=== PATIENT | male | born 1975 | race American Indian/Alaskan Native ===

== ENCOUNTER 2017-05-23 19:00 | Emergency (ER) | payer SELFPAY ==
[2017-05-23 19:16] VITALS: TEMP 98.7
[2017-05-23 21:19] VITALS: BP 156/86; PULSE 72; RESP 18; O2SAT 99
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
--- NOTE | 2017-05-24 07:41 | RAD ---
Right shoulder three views History: Injury. Comparison: None available. Findings: Glenohumeral and acromioclavicular joint spaces appear preserved. No evidence of acute displaced fracture or dislocation of the right shoulder. Incidentally noted is a punctate ossific density seen adjacent to the right lateral aspect of the right transverse process of the T1 vertebral body, nonspecific. Small avulsion injury cannot entirely be excluded. Clinical correlation. Impression: No evidence of acute displaced fracture or dislocation of the right shoulder. Incidentally noted is a punctate ossific density seen adjacent to the right lateral aspect of the right transverse process of the T1 vertebral body, nonspecific. Small avulsion injury cannot entirely be excluded. Clinical correlation. If pain persists, consider MRI.
--- NOTE | 2017-05-24 07:43 | RAD ---
Right humerus two views History: Injury. Comparison: None available. Findings: No evidence of acute displaced fracture or dislocation. Impression: Negative acute. If pain persists, consider MRI.
--- NOTE | 2017-05-24 07:44 | RAD ---
Right elbow three views History: Injury. Comparison: None available. Findings: Curvilinear ossific density seen adjacent to the olecranon process which may represent focal calcific tendinopathy of the distal triceps tendon versus small avulsion injury. Clinical correlation. No significant elbow joint effusion. No evidence of dislocation. Impression: Curvilinear ossific density seen adjacent to the olecranon process which may represent focal calcific tendinopathy of the distal triceps tendon versus small avulsion injury. Clinical correlation. If pain persists, consider further evaluation with MRI.
--- NOTE | 2017-05-24 08:11 | RAD ---
Right forearm two views History: Injury. Comparison: None available. Findings: Curvilinear radiopaque density seen adjacent to the olecranon which may represent calcific tendinopathy of the distal triceps tendon versus small avulsion injury. No significant elbow joint effusion. No evidence of dislocation. Impression: Curvilinear radiopaque density seen adjacent to the olecranon which may represent calcific tendinopathy of the distal triceps tendon versus small avulsion injury. If pain persists, consider MRI.
== END 2017-05-23 21:37 | disposition home or self-care (01) ==
LOC: C.ER 19:00
DX: S52.021A Displaced fracture of olecranon process without intraarticular extension of right ulna, initial encounter for closed fracture (principal); V09.9XXA Pedestrian injured in unspecified transport accident, initial encounter